=== PATIENT | female | born 1995 | race Native Hawaiian/Other Pacific Islander ===

== ENCOUNTER 2017-11-20 14:31 | Outpatient (CLI) | payer BC | END 2017-11-20 23:38 | disposition home or self-care (01) | LOC: RAD 14:31 | DX: M25.511 Pain in right shoulder (principal) ==

== ENCOUNTER 2019-05-07 13:57 | Outpatient (CLI) | payer BC | END 2019-05-07 22:36 | disposition home or self-care (01) | LOC: US 13:57 | DX: R10.11 Right upper quadrant pain (principal) ==

== ENCOUNTER 2019-05-21 07:54 | Outpatient (CLI) | payer BC | END 2019-05-21 19:04 | disposition home or self-care (01) | LOC: NM 07:54 | DX: R10.11 Right upper quadrant pain (principal); R11.0 Nausea | CPT/HCPCS: A9537 ==

== ENCOUNTER 2020-07-03 16:19 | Outpatient (CLI) | payer BC | END 2020-07-03 22:06 | disposition home or self-care (01) | LOC: RAD 16:19 | PROVIDERS: ATTEND Registered Nurse | DX: M25.562 Pain in left knee (principal); M54.5 Low back pain ==

== ENCOUNTER 2020-11-20 02:05 | Emergency (ER) | payer OTHER ==
[~2020-11-20] VITALS: Ht 165.1 cm; Wt 73.5 kg
[2020-11-20 02:46] VITALS: BP 113/79; TEMP 98.7
== END 2020-11-20 02:46 | disposition home or self-care (01) ==
LOC: ED 02:05
DX: K08.89 Other specified disorders of teeth and supporting structures (principal); Z79.2 Long term (current) use of antibiotics
CPT/HCPCS: 96372; 99282; J1885